=== PATIENT | male | born 1970 | race Caucasian/White ===

== ENCOUNTER 2021-07-22 07:58 | Day surgery (SDC) | payer MEDICARE, MEDICAID, SELFPAY ==
--- NOTE | 2021-07-21 08:11 | P.CONAN_ITS ---
Documented by User: Chanel Chappell NP 07/21/21 11:10 HPI - Anesthesia Eval Consult details Narrative: 50yo M for Upper Endoscopy and Colonoscopy SN[facility] resident [facility] Past Medical History Medical History (Updated 07/21/21 @ 09:41 by Nery Baeza, FATMATA) ADHD Aphagia Cognitive deficits COPD (chronic obstructive pulmonary disease) GERD (gastroesophageal reflux disease) Hyperlipidemia Intermittent explosive disorder Schizophrenia Surgical History Surgical History (Updated 07/17/21 @ 10:19 by Nery Baeza RN) Hx of cholecystectomy Hx of endoscopic retrograde cholangiopancreatography Social History Social History Are you a primary nursing care attendant to a significant other at home: No Do you presently have visiting nurse or other home services: Yes Use of substances other than those prescribed or required for medical reasons: No Are you DNR?: No Advance Directives: No Advance Directives Information Provided: No Advance Directives on File: No Meds Allergies Allergy/AdvReac Type Severity Reaction Status Date / Time No Known Allergies Allergy Unverified 07/17/21 10:54 [No Known Allergies*] Home Medications Medication Instructions Recorded Confirmed Last Taken Type atorvastatin 20 mg tablet 1 tab PO DAILY 07/17/21 07/17/21 Unknown History benztropine 0.5 mg tablet 1 tab PO BID 07/17/21 07/17/21 Unknown History chlorpromazine 25 mg tablet 3 tab PO BID 07/17/21 07/21/21 Unknown History diazepam 2 mg tablet 1 tab PO BID 07/17/21 07/17/21 Unknown History esomeprazole magnesium 40 mg 1 cap PO DAILY 07/17/21 07/17/21 Unknown History capsule,delayed release haloperidol 5 mg tablet 1 tab PO BEDTIME 07/17/21 07/17/21 Unknown History haloperidol decanoate 50 mg/mL mg IM 07/17/21 Unknown History intramuscular solution hydroxyzine HCl 25 mg tablet 12.5 tab PO DAILY 07/17/21 07/21/21 Unknown History lithium carbonate 300 mg tablet 1 tab PO BEDTIME 07/17/21 07/17/21 Unknown History lithium carbonate 300 mg 1 tab PO BEDTIME 07/17/21 07/17/21 Unknown History tablet,extended release nystatin 100,000 unit/gram topical TOPICAL 07/17/21 Unknown History powder (Nyamyc) oxcarbazepine 150 mg tablet 1 tab PO BEDTIME 07/17/21 07/17/21 Unknown History propranolol 10 mg tablet 1 tab PO TID 07/17/21 07/22/21 07/22/21 History acetaminophen 325 mg tablet 650 mg PO Q4H PRN 07/21/21 07/21/21 Unknown History aluminum-mag hydroxide-simethicone 30 ml PO Q6H PRN 07/21/21 07/21/21 Unknown History 200 mg-200 mg-20 mg/5 mL oral susp diazepam 2 mg tablet (Valium) 2 mg PO BID PRN 07/21/21 07/21/21 Unknown History hydroxyzine HCl 25 mg tablet 25 tab PO BEDTIME 07/21/21 07/21/21 Unknown History multivitamin 1 tab PO DAILY 07/21/21 07/21/21 Unknown History oxcarbazepine 300 mg tablet 1 tab PO BID 07/21/21 07/21/21 Unknown History Exam Exam Date and Time: July 21, 2021 0811 Assessment and Plan Assessment Anesthesia Assessment: Chart Reviewed Documented by User: Francine Swann MD 07/22/21 08:44 [facility] Past Medical History Medical History (Updated 07/21/21 @ 09:41 by Nery Baeza RN) ADHD Aphagia Cognitive deficits COPD (chronic obstructive pulmonary disease) GERD (gastroesophageal reflux disease) Hyperlipidemia Intermittent explosive disorder Schizophrenia Family History Family history of problems with anesthesia: No Surgical History Surgical History (Updated 07/17/21 @ 10:19 by Nery Baeza RN) Hx of cholecystectomy Hx of endoscopic retrograde cholangiopancreatography History of Problems with Anesthesia: No Social History Social History Are you a primary nursing care attendant to a significant other at home: No Do you presently have visiting nurse or other home services: Yes Use of substances other than those prescribed or required for medical reasons: No Are you DNR?: No Advance Directives: No Advance Directives Information Provided: No Advance Directives on File: No Meds Allergies Allergy/AdvReac Type Severity Reaction Status Date / Time No Known Allergies Allergy Unverified 07/17/21 10:54 [No Known Allergies*] Home Medications Medication Instructions Recorded Confirmed Last Taken Type atorvastatin 20 mg tablet 1 tab PO DAILY 07/17/21 07/17/21 Unknown History benztropine 0.5 mg tablet 1 tab PO BID 07/17/21 07/17/21 Unknown History chlorpromazine 25 mg tablet 3 tab PO BID 07/17/21 07/21/21 Unknown History diazepam 2 mg tablet 1 tab PO BID 07/17/21 07/17/21 Unknown History esomeprazole magnesium 40 mg 1 cap PO DAILY 07/17/21 07/17/21 Unknown History capsule,delayed release haloperidol 5 mg tablet 1 tab PO BEDTIME 07/17/21 07/17/21 Unknown History haloperidol decanoate 50 mg/mL mg IM 07/17/21 Unknown History intramuscular solution hydroxyzine HCl 25 mg tablet 12.5 tab PO DAILY 07/17/21 07/21/21 Unknown History lithium carbonate 300 mg tablet 1 tab PO BEDTIME 07/17/21 07/17/21 Unknown History lithium carbonate 300 mg 1 tab PO BEDTIME 07/17/21 07/17/21 Unknown History tablet,extended release nystatin 100,000 unit/gram topical TOPICAL 07/17/21 Unknown History powder ([facility]) oxcarbazepine 150 mg tablet 1 tab PO BEDTIME 07/17/21 07/17/21 Unknown History propranolol 10 mg tablet 1 tab PO TID 07/17/21 07/22/21 07/22/21 History acetaminophen 325 mg tablet 650 mg PO Q4H PRN 07/21/21 07/21/21 Unknown History aluminum-mag hydroxide-simethicone 30 ml PO Q6H PRN 07/21/21 07/21/21 Unknown History 200 mg-200 mg-20 mg/5 mL oral susp diazepam 2 mg tablet (Valium) 2 mg PO BID PRN 07/21/21 07/21/21 Unknown History hydroxyzine HCl 25 mg tablet 25 tab PO BEDTIME 07/21/21 07/21/21 Unknown History multivitamin 1 tab PO DAILY 07/21/21 07/21/21 Unknown History oxcarbazepine 300 mg tablet 1 tab PO BID 07/21/21 07/21/21 Unknown History Exam Airway Mallampati Class: II (Poor dentition, missing muultiple, denies any loose) TM Dist: >3cm Neck ROM: Full Heart: rrr Lungs: cta Assessment and Plan Assessment Anesthesia Assessment: Anesthesia Plan Discussed and Chart Reviewed Final Anesthetic Review Family History of Problems with Anesthesia: No History of Problems with Anesthesia: No NPO: Yes ASA Class: II Final Preanesthetic Review: No Changes in Pt Med Stat, Meds/Allgs Chart Reviewed and Consent Obtained/Reviewed Patient Risk: Intermediate Procedure Risk: Intermediate Anesthetic Plan Anesthetic Plan: MAC: Disposition: Standard PACU
[2021-07-21 09:55] VITALS: BMI 37.8
[2021-07-22 08:12] VITALS: BP 129/96; PULSE 80; RESP 22; TEMP 36; O2SAT 96
[2021-07-22] MEDS: Lactated Ringers 1,000 ML 100 ML IVCONT (08:26)
[2021-07-22 10:30] VITALS: BP 108/63; PULSE 87; RESP 18; TEMP 36.3; O2SAT 95
--- NOTE | 2021-07-22 10:38 | PM.OP ---
Brief Operative Note Date of Service: 07/22/21 Pre-op diagnosis: Vomiting, Screening Post-op diagnosis: other (Hiatal hernia, Diverticulosis) Procedure: EGD with biopsies, Colonoscopy to the cecum and TI Surgeon: Armen Orourke Anesthesia: MAC Was an Manager Water Wastewater used for this Procedure?: No Estimated blood loss (mL): 2.0 Pathology: other (A. Gastric polyps B. EG Junction at 35cm) Condition: stable Disposition: PACU
[2021-07-22 10:45] VITALS: BP 105/78; PULSE 76; RESP 16; O2SAT 95
[2021-07-22 11:00] VITALS: BP 130/79; PULSE 70; RESP 16; TEMP 36.3; O2SAT 96
--- NOTE | 2021-07-22 11:56 | OP_ITS ---
SURGEON: Armen Orourke MD INDICATIONS: The patient presents for evaluation of intermittent vomiting and colorectal cancer screening. Full consent was obtained from the patient and his mother, including risks of bleeding and perforation. PREOPERATIVE DIAGNOSIS: POSTOPERATIVE DIAGNOSIS: PROCEDURE PERFORMED: Esophagogastroduodenoscopy with biopsies, and colonoscopy to the cecum and terminal ileum. ESTIMATED BLOOD LOSS: COMPLICATIONS: ANESTHESIA: Monitored anesthesia care. ASSISTANTS: SPECIMENS: PREOPERATIVE DIAGNOSES: Vomiting and colorectal cancer screening. POSTOPERATIVE DIAGNOSES: Vomiting and colorectal cancer screening, hiatal hernia, gastric polyps, diverticulosis and internal hemorrhoids. DESCRIPTION OF PROCEDURE: The patient was placed in the left lateral decubitus position. The Olympus video gastroscope was passed in the posterior oropharynx and upper esophagus under direct vision. The scope was passed slowly to the distal esophagus. The distal esophagus was somewhat tortuous, but there was no evidence of any esophagitis nor Gipson esophagus. The gastroesophageal junction appeared at 35 cm and was slightly irregular, but again without any sign of esophagitis nor Gipson esophagus. The scope entered into the stomach. There was a moderate sized hiatal hernia. The scope was advanced to pylorus. The duodenum was cannulated to the descending portion. The duodenum including the bulb appeared normal without mass or ulceration. The scope was withdrawn back in the stomach. The gastric antrum and body appeared normal with good peristalsis. The scope was retroflexed visualizing the proximal stomach carefully, which appeared normal other than multiple hyperplastic appearing gastric polyps. Some of these were biopsied. The scope was straightened and withdrawn back of the esophagus. Biopsies were obtained at the EG junction at 35 cm. Again, the distal esophagus was somewhat tortuous and there was a moderate-sized hiatal hernia. The esophageal mucosa otherwise appeared normal. The scope was withdrawn from the patient, but he was turned around for the colonoscopy. The digital rectal exam revealed no abnormalities. The Olympus video pediatric colonoscope was entered into the rectum and advanced to the cecum with the assistance of abdominal pressure. Once in the cecum, I did identify normal-appearing cecal pouch with appendiceal orifice and a normal-appearing ileocecal valve. The terminal ileum was cannulated and appeared normal. The scope was withdrawn back from the colon. The scope was slowly withdrawn assessing all mucosal surfaces carefully. Preparation was good throughout the colon, although did require a fair amount of irrigation and suction. I did not visualize any sign of polyps, colitis, or angiodysplasia. There was a mild amount of sigmoid diverticulosis. In the rectum, scope was retroflexed visualizing internal hemorrhoids, but no other pathology. The rectal mucosa appeared normal. The scope was straightened and withdrawn from the patient. He tolerated the procedure well and was returned to the recovery area in stable condition. IMPRESSION: 1. Moderate-sized hiatal hernia. 2. Gastric polyps. 3. Diverticulosis. 4. Internal hemorrhoids. PLAN: The results of biopsies will be checked. Given the negative colonoscopy, I would recommend a repeat exam in 10 years. He will continue his esomeprazole. He will see me on a p.r.n. basis. If he does continue to have episodes of vomiting, I would recommend further evaluation with a barium swallow and upper GI series to rule out any other anatomic abnormality in regard to the moderate-sized hiatal hernia, but at this point, if things are stable, I would observe him on the esomeprazole. MD DOUG Marcus/DELIO / [id number]
== END 2021-07-22 11:35 | disposition home or self-care (01) ==
PROVIDERS: Visit Provider Internal Medicine
PROC: (CPT 43239; principal; 2021-07-22 09:10)
DX: Z12.11 Encounter for screening for malignant neoplasm of colon (principal); K57.30 Diverticulosis of large intestine without perforation or abscess without bleeding; K64.8 Other hemorrhoids; R11.11 Vomiting without nausea; K21.9 Gastro-esophageal reflux disease without esophagitis; K31.7 Polyp of stomach and duodenum; K44.9 Diaphragmatic hernia without obstruction or gangrene; E78.5 Hyperlipidemia, unspecified; J44.9 Chronic obstructive pulmonary disease, unspecified; F20.9 Schizophrenia, unspecified; F90.9 Attention-deficit hyperactivity disorder, unspecified type; R41.89 Other symptoms and signs involving cognitive functions and awareness; Z79.899 Other long term (current) drug therapy; Z90.49 Acquired absence of other specified parts of digestive tract; Z87.19 Personal history of other diseases of the digestive system
CPT/HCPCS: 43239; G0121; 88305; 88342